=== PATIENT | male | born 1965 | race African-American/Black ===

== ENCOUNTER 2018-03-22 11:15 | Emergency (ER) | payer MEDICAID ==
[~2018-03-22] VITALS: Ht 177.8 cm; Wt 74.0 kg
[~2018-03-22 11:15] MED LIST: PROVASTATIN
[2018-03-22] MEDS ORDERED: IBUPROFEN 600MG TABLET PO ONE (12:15)
[2018-03-22] MEDS ORDERED: ONDANSETRON HCL 4MG TABLET PO ONE (12:15)
[2018-03-22 13:04] VITALS: BP 135/77
== END 2018-03-22 15:48 | disposition home or self-care (01) ==
LOC: ER 12:05
DX: S06.0X0A Concussion without loss of consciousness, initial encounter (principal); W22.8XXA Striking against or struck by other objects, initial encounter; Y93.89 Activity, other specified; Y92.89 Other specified places as the place of occurrence of the external cause; R03.0 Elevated blood-pressure reading, without diagnosis of hypertension
CPT/HCPCS: 70450; 71045; 93005; 99284; Q0162

== ENCOUNTER 2019-02-02 22:26 | Emergency (ER) | payer MEDICAID ==
[~2019-02-02] VITALS: Ht 177.8 cm; Wt 75.0 kg
[2019-02-03] MEDS ORDERED: ONDANSETRON 4MG ODT PO STA (00:05)
[2019-02-03] MEDS ORDERED: KETOROLAC 60MG/2ML VIAL IM ONE (00:15)
[2019-02-03 00:34] LABS: BASOPHILS % 0.8 % (0.0-2.0); EOSINOPHILS % 4.6 % (0.0-5.0); HEMOGLOBIN. 13.7 g/dL (14.0-18.0); MEAN CORPUSCULAR HEMOGLOBIN 28.2 pg (28.0-32.0); MEAN CORPUSCULAR VOLUME 84.5 fL (80.0-94.0); MEAN PLATELET VOLUME 8.5 fl (7.4-10.4); MONOCYTES % 11.5 % (2.0-8.0); NEUTROPHILS % 57.1 % (40.0-76.0); PLATELET 156 x1000/uL (130-400); RED BLOOD CELL COUNT 4.85 mill/uL (4.7-6.1); RED CELL DISTRIBUTION WIDTH 13.2 % (11.6-14.6)
[2019-02-03 00:36] LABS: CHLORIDE 107 mEq/L (98-107)
[2019-02-03 00:39] LABS: ETHANOL BLOOD < 10 mg/dL
[2019-02-03 01:28] LABS: CLARITY URINE CLEAR (CLEAR); COLOR URINE YELLOW (YELLOW); KETONES URINE NEGATIVE (NEGATIVE); LEUKOCYTE ESTERASE URINE NEGATIVE (NEGATIVE); NITRITE URINE NEGATIVE (NEGATIVE); OCCULT BLOOD URINE NEGATIVE (NEGATIVE); PROTEIN URINE NEGATIVE (NEGATIVE); UROBILINOGEN URINE 0.2 E.U./dL (0.2-1.0)
[2019-02-03 02:04] LABS: *AMPHETAMINES SCREEN URINE NEGATIVE (NEGATIVE)
[2019-02-03 02:05] LABS: *BARBITURATES SCREEN URINE NEGATIVE (NEGATIVE); *BENZODIAZEPINES SCREEN URINE NEGATIVE (NEGATIVE); *COCAINE SCREEN URINE NEGATIVE (NEGATIVE); CANNABINOID URINE SCREEN NEGATIVE (NEGATIVE); METHADONE URINE SCREEN NEGATIVE (NEGATIVE); OPIATES URINE SCREEN NEGATIVE (NEGATIVE); PHENCYCLIDINE URINE SCREEN NEGATIVE (NEGATIVE)
[2019-02-03 03:50] VITALS: BP 126/74
== END 2019-02-03 03:51 | disposition home or self-care (01) ==
LOC: ER 22:26
DX: R10.9 Unspecified abdominal pain (principal); Z96.652 Presence of left artificial knee joint
CPT/HCPCS: 36415; 71045; 80053; 80305; 80320; 81003; 83690; 84484; 85025; 93005; 96372; 99284; J1885; Q0162; G0480

== ENCOUNTER 2021-12-11 23:13 | Emergency (ER) | payer MEDICAID ==
[~2021-12-11] VITALS: Ht 177.8 cm; Wt 82.0 kg
[2021-12-11 23:19] VITALS: BP 150/90
== END 2021-12-12 11:33 | disposition left against medical advice (07) ==
LOC: ER 23:13
DX: Z53.21 Procedure and treatment not carried out due to patient leaving prior to being seen by health care provider (principal); R06.00 Dyspnea, unspecified; R06.02 Shortness of breath; R00.0 Tachycardia, unspecified
CPT/HCPCS: 93005

== ENCOUNTER 2023-05-28 19:01 | Emergency (ER) | payer MEDICAID, OTHER ==
[~2023-05-28] VITALS: Ht 180.3 cm; Wt 84.0 kg
[2023-05-28] MEDS ORDERED: DIAZEPAM 5 MG TABLET PO SCH (19:30)
[2023-05-28] MEDS ORDERED: ETOMIDATE 2MG/ML 10ML VIAL IV ONE (20:30)
[2023-05-28] MEDS ORDERED: MIDAZOLAM HCL 2 MG/2 ML VIAL ONE (21:57)
[2023-05-28] MEDS ORDERED: PROPOFOL 200MG/20ML VIAL IV ONE ×3 (22:15→23:00)
[2023-05-28 22:18] VITALS: O2SAT 100
[2023-05-29 00:55] VITALS: BP 150/74; PULSE 61; RESP 18; TEMP 98.5
== END 2023-05-29 00:55 | disposition home or self-care (01) ==
LOC: ER 19:01
DX: R68.84 Jaw pain (principal); E78.00 Pure hypercholesterolemia, unspecified
CPT/HCPCS: 70250; 21480; 96374; 99152; 99285; J3490; J2250; J2704; Z7610 ×2

== ENCOUNTER 2023-10-30 13:12 | Inpatient (IN) | payer SELFPAY ==
[~2023-10-30] VITALS: Ht 177.8 cm; Wt 81.6 kg
[2023-10-30 14:33] LABS: BASOPHILS % 0.9 % (0.0-2.0); EOSINOPHILS % 2.6 % (0.0-5.0); HEMATOCRIT. 42.7 % (42.0-52.0); HEMOGLOBIN. 13.9 g/dL (14.0-18.0); LYMPHOCYTES % 23.7 % (20.0-50.0); MEAN CORPUSCULAR HEMOGLOBIN 27.8 pg (28.0-32.0); MEAN CORPUSCULAR HGB CONC 32.5 g/dL (31.0-37.0); MEAN CORPUSCULAR VOLUME 85.6 fL (80.0-94.0); MEAN PLATELET VOLUME 8.4 fl (7.4-10.4); MONOCYTES % 10.6 % (2.0-8.0); NEUTROPHILS % 62.2 % (40.0-76.0); PLATELET 172 x1000/uL (130-400); RED BLOOD CELL COUNT 4.99 mill/uL (4.7-6.1); RED CELL DISTRIBUTION WIDTH 13.1 % (11.6-14.6); WHITE BLOOD COUNT 4.6 x1000/uL (4.5-11.0)
[2023-10-30 14:37] LABS: CHLORIDE 104 mEq/L (98-107); POTASSIUM 4.2 mEq/L (3.5-5.1); SODIUM 137 mEq/L (136-145)
[2023-10-30 14:38] LABS: CARBON DIOXIDE 29 mEq/L (21-32)
[2023-10-30 14:39] LABS: CALCIUM 9.1 mg/dL (8.7-10.4)
[2023-10-30 14:43] LABS: GLUCOSE 94 mg/dL (70-105)
[2023-10-30 14:44] LABS: UREA NITROGEN BLOOD 13 mg/dL (9-23)
[2023-10-30 14:45] LABS: ALANINE AMINOTRANSFERASE 21 IU/L (10-49); ALBUMIN 4.3 g/dL (3.2-4.8); ASPARTATE AMINOTRANSFERASE 23 IU/L (<34)
[2023-10-30 14:46] LABS: PROTEIN TOTAL 6.5 g/dL (6.0-8.3)
[2023-10-30] MEDS: ACETAMINOPHEN 325MG TABLET PO ONE (15:24)
[2023-10-30] MEDS: IOHEXOL-350 100 ML BOTTLE ONE (16:03)
[2023-10-30] MEDS ORDERED: ACETAMINOPHEN 325MG TABLET PO PRN ×2 (19:00)
[2023-10-30] MEDS ORDERED: ONDANSETRON HCL 4MG/2ML INJ IV PRN (19:00)
[2023-10-30] MEDS ORDERED: CLONIDINE 0.1MG TABLET PO PRN (19:00)
[2023-10-30] MEDS ORDERED: IPRATROPIUM/ALBUTEROL 0.5-3(2.5)MG/3ML NEB HHN PRN (19:00)
[2023-10-30] MEDS ORDERED: NALOXONE HCL 0.4MG/ML VIAL IV PRN (19:15)
[2023-10-30] MEDS: SODIUM CHLORIDE 0.9% 1,000 ML IV SCH (19:17)
[2023-10-30] MEDS ORDERED: IOHEXOL-300 100 ML BOTTLE ONE (23:08)
[2023-10-30] MEDS: HYDROCODONE/ACETAMINOPHEN 5/325MG TABLET PO PRN (23:42)
[2023-10-31 00:57] VITALS: BP 123/74; PULSE 70; RESP 18; TEMP 98.4
[2023-10-31] MEDS: DOCUSATE SODIUM 100MG CAPSULE PO PRN (06:39)
[2023-10-31 07:15] LABS: BASOPHILS % 0.6 % (0.0-2.0); EOSINOPHILS % 4.2 % (0.0-5.0); HEMATOCRIT. 38.6 % (42.0-52.0); LYMPHOCYTES % 28.3 % (20.0-50.0); MEAN CORPUSCULAR HEMOGLOBIN 28.2 pg (28.0-32.0); MEAN CORPUSCULAR HGB CONC 33.7 g/dL (31.0-37.0); MEAN CORPUSCULAR VOLUME 83.6 fL (80.0-94.0); MONOCYTES % 12.2 % (2.0-8.0); NEUTROPHILS % 54.7 % (40.0-76.0); PLATELET 163 x1000/uL (130-400); RED BLOOD CELL COUNT 4.62 mill/uL (4.7-6.1); RED CELL DISTRIBUTION WIDTH 12.9 % (11.6-14.6); WHITE BLOOD COUNT 3.2 x1000/uL (4.5-11.0)
[2023-10-31 07:30] LABS: CARBON DIOXIDE 24 mEq/L (21-32); CHLORIDE 107 mEq/L (98-107); POTASSIUM 3.9 mEq/L (3.5-5.1); SODIUM 138 mEq/L (136-145)
[2023-10-31 07:31] LABS: CALCIUM 8.7 mg/dL (8.7-10.4)
[2023-10-31 07:35] LABS: CREATININE 0.9 mg/dL (0.6-1.3)
[2023-10-31 07:36] LABS: GLUCOSE 83 mg/dL (70-105); UREA NITROGEN BLOOD 10 mg/dL (9-23)
[2023-10-31 08:00] VITALS: BP 129/72; PULSE 55; RESP 17; TEMP 97.5
[2023-10-31 12:00] VITALS: BP 138/82; PULSE 56; RESP 17; TEMP 96.3
[2023-10-31 12:40] LABS: *AMPHETAMINES SCREEN URINE NEGATIVE (NEGATIVE); *BARBITURATES SCREEN URINE NEGATIVE (NEGATIVE); *BENZODIAZEPINES SCREEN URINE NEGATIVE (NEGATIVE); *COCAINE SCREEN URINE NEGATIVE (NEGATIVE); CANNABINOID URINE SCREEN NEGATIVE (NEGATIVE); ECSTASY MDMA SCREEN URINE NEGATIVE (NEGATIVE); METHADONE URINE SCREEN NEGATIVE (NEGATIVE); OPIATES URINE SCREEN PRESUMPTIVE POSITIVE (NEGATIVE); PHENCYCLIDINE URINE SCREEN NEGATIVE (NEGATIVE)
[2023-10-31] MEDS ORDERED: TOPUD PO (12:52)
[2023-10-31] MEDS ORDERED: HYDR-4001 MT (12:52)
[2023-10-31 15:06] VITALS: BP 138/82; PULSE 56; TEMP 97.8; O2SAT 96
[2023-10-31 16:00] VITALS: BP 120/79; PULSE 89; RESP 17; TEMP 99.1
== END 2023-10-31 17:30 | disposition home or self-care (01) | DRG 341 ==
LOC: ER 13:12 → 5WST 16:36 → EDBEDREQ 16:39 → EDBEDREQTM 16:39 → 6EST 21:48
PROVIDERS: ADMIT Internal Medicine; ATTEND Internal Medicine
DX: S32.591A Other specified fracture of right pubis, initial encounter for closed fracture (principal); E78.00 Pure hypercholesterolemia, unspecified; V00.141A Fall from scooter (nonmotorized), initial encounter; Y93.89 Activity, other specified; Y92.89 Other specified places as the place of occurrence of the external cause
CPT/HCPCS: 36415; 73090; 73130; 73502; 74177; 80048; 80053; 80305; 85025; 97162; 99285; J7030; Q9967

== ENCOUNTER 2025-01-15 08:54 | Emergency (ER) | payer MEDICAID ==
[~2025-01-15] VITALS: Ht 177.8 cm; Wt 84.0 kg
[~2025-01-15 08:54] MED LIST changes: +HYDR-4001 MT; +TOPUD PO
[2025-01-15 09:17] VITALS: TEMP 36.7; O2SAT 100
[2025-01-15] MEDS: TETRACAINE 0.5% OPHTH DROPS 4ML BOTHEYE ONE (10:45)
[2025-01-15] MEDS: FLUORESCEIN SODIUM 1MG/STRIP RIGHTEYE ONE (10:45)
[2025-01-15] MEDS ORDERED: BRIM1DRO BOTHEYE (12:16)
[2025-01-15] MEDS ORDERED: IBUP-1455 MT (12:16)
[2025-01-15] MEDS ORDERED: MOXI3DRO12 RIGHTEYE (12:16)
[2025-01-15 12:43] VITALS: BP 128/89; PULSE 79; RESP 16; O2SAT 100
== END 2025-01-15 12:45 | disposition home or self-care (01) ==
LOC: ER 08:54
DX: B30.9 Viral conjunctivitis, unspecified (principal); E78.00 Pure hypercholesterolemia, unspecified; Z79.891 Long term (current) use of opiate analgesic; Z98.890 Other specified postprocedural states
CPT/HCPCS: 99283